=== PATIENT | male | born 2000 | race Two or more races ===

== ENCOUNTER 2020-03-14 00:08 | Emergency (ER) | payer OTHER ==
[~2020-03-14] VITALS: Ht 195.6 cm; Wt 117.0 kg
[2020-03-14 00:29] VITALS: Ht 195.6 cm; Wt 117.0 kg
[2020-03-14 02:50] VITALS: BP 128/73
== END 2020-03-14 02:50 | disposition home or self-care (01) ==
LOC: ED 00:08
DX: J36 Peritonsillar abscess (principal); J45.909 Unspecified asthma, uncomplicated
CPT/HCPCS: J0696; J1100; J1885; J3490; J7060